=== PATIENT | male | born 1990 | race Caucasian/White ===

== ENCOUNTER 2018-09-07 13:10 | Emergency (ER) | payer SELFPAY ==
[~2018-09-07] VITALS: Ht 172.7 cm; Wt 131.1 kg
[2018-09-07 13:21] VITALS: BP 105/83
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
--- NOTE | 2018-09-07 14:14 | NUR ---
PT TO CT SCAN VIA WHEELCHAIR .
--- NOTE | 2018-09-07 14:15 | NUR ---
PT PLACED ON CARIAC MONITOR
[2018-09-07] MEDS ORDERED: ONDANSETRON 4 MG/2 ML VIAL IVP ONE (14:30)
[2018-09-07] MEDS ORDERED: HYDROcodone/APAP 7.5/325 MG 1 TAB PO ONE (14:30)
[2018-09-07] MEDS ORDERED: NACL 0.9% 1,000 ML IV ONE (14:30)
--- NOTE | 2018-09-07 15:05 | NUR ---
VSS AT THIS TIME. PT [id number]. LIGHTS TURNED OFF FOR PT COMFORT
[2018-09-07 15:17] LABS: BARBITURATE, URINE NEG. ng/ml (NEG <=200); BENZODIAZEPINE, URINE NEG. ng/mL (NEG <=200); CANNABINOID, URINE NEG. ng/mL (NEG <=50); COCAINE, URINE NEG. ng/mL (NEG <=300); OPIATE, URINE NEG. ng/mL (NEG <=2000); PHENCYCLIDINE SCREEN,URINE NEG. ng/mL (NEG <=25)
[2018-09-07 15:52] VITALS: BP 129/56
--- NOTE | 2018-09-07 15:52 | NUR ---
Patient discharged with v/s stable. Written and verbal after care instructions given and explained. Patient alert, oriented and verbalized understanding of instructions. Ambulatory with steady gait. All questions addressed prior to discharge. ID band removed. Patient advised to follow up with PMD. Rx of IBUPROFEN given. Patient educated on indication of medication including possible reaction and side effects. Opportunity to ask questions provided and answered. PT STATES HIS WILL BE PICKING HIM UP.
== END 2018-09-07 15:52 | disposition home or self-care (01) ==
LOC: MED 13:10
DX: S09.90XA Unspecified injury of head, initial encounter (principal); E86.0 Dehydration; F15.10 Other stimulant abuse, uncomplicated; F17.210 Nicotine dependence, cigarettes, uncomplicated; W01.0XXA Fall on same level from slipping, tripping and stumbling without subsequent striking against object, initial encounter; Y93.89 Activity, other specified; Y92.89 Other specified places as the place of occurrence of the external cause; Y99.8 Other external cause status
CPT/HCPCS: 70450; 80305; 81002; 96361; 96374; 99284; J2405; J7030

== ENCOUNTER 2019-09-11 18:45 | Emergency (ER) | payer SELFPAY ==
[~2019-09-11] VITALS: Ht 172.7 cm; Wt 131.5 kg
--- NOTE | 2019-09-11 18:52 | NUR ---
PT AMBULATED TO ER BED 02
[2019-09-11 18:56] VITALS: BP 141/112
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
[2019-09-11] MEDS ORDERED: KETOROLAC 30 MG/ML VIAL IM ONE (19:15)
--- NOTE | 2019-09-11 20:00 | NUR ---
PT RETURNED FROM RAD
--- NOTE | 2019-09-11 20:26 | NUR ---
Dr. Storm examining patient.
[2019-09-11 20:55] VITALS: BP 141/112
--- NOTE | 2019-09-11 20:55 | NUR ---
Patient discharged with v/s stable. Written and verbal after care instructions given and explained. Patient alert, oriented and verbalized understanding of instructions. Ambulatory with steady gait. All questions addressed prior to discharge. ID band removed. Patient advised to follow up with PMD. Rx of NAPROXEN given. PT AAOX4 and walks in steady gait and no dizziness or pain complained. pt d/c.
== END 2019-09-11 20:55 | disposition home or self-care (01) ==
LOC: MED 18:45
DX: S20.212A Contusion of left front wall of thorax, initial encounter (principal); W18.39XA Other fall on same level, initial encounter; Y93.89 Activity, other specified; Y92.89 Other specified places as the place of occurrence of the external cause; Y99.8 Other external cause status
CPT/HCPCS: 71046; 96372; 99283; J1885

== ENCOUNTER 2020-02-13 15:32 | Emergency (ER) | payer MEDICAID ==
[~2020-02-13] VITALS: Ht 172.7 cm; Wt 131.5 kg
[2020-02-13 15:40] VITALS: BP 124/72
[2020-02-13] MEDS ORDERED: ACETAMINOPHEN EXTRA STRENGTH 500 MG TAB PO ONE (16:25)
[2020-02-13] MEDS ORDERED: BACITRACIN OINT 500 UNITS/GM PKT TP ONE (16:25)
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
--- NOTE | 2020-02-13 16:29 | NUR ---
IRRIGATED PT HEAD WITH SALINE WITHOUT ANY ISSUES
--- NOTE | 2020-02-13 16:49 | NUR ---
Patient taken to CT scan via wheelchair by tech.
[2020-02-13 18:02] VITALS: BP 130/84
== END 2020-02-13 18:02 | disposition home or self-care (01) ==
LOC: MED 15:32
DX: S01.01XA Laceration without foreign body of scalp, initial encounter (principal); F17.210 Nicotine dependence, cigarettes, uncomplicated; W20.8XXA Other cause of strike by thrown, projected or falling object, initial encounter; Y93.89 Activity, other specified; Y92.89 Other specified places as the place of occurrence of the external cause; Y99.8 Other external cause status
CPT/HCPCS: 12001; 70450; 99284

== ENCOUNTER 2020-03-30 21:05 | Emergency (ER) | payer MEDICAID, SELFPAY ==
[~2020-03-30] VITALS: Ht 172.7 cm; Wt 119.7 kg
[2020-03-30 21:20] VITALS: BP 152/82
--- NOTE | 2020-03-30 22:00 | NUR ---
ERMD ASSESSING PATIENT IN TENT.
[2020-03-30 22:15] VITALS: BP 152/82
--- NOTE | 2020-03-30 22:15 | NUR ---
JOSSELYN SWAB COLLEDTEC AND SENT TO LAB. NO NURSING INTERVENTIONS NEEDED PATIENT SEEN, TREATED, AND D/C BY ERMAraceli.
== END 2020-03-30 22:15 | disposition home or self-care (01) ==
LOC: MED 21:05
DX: R05 Cough (principal); Z20.828 Contact with and (suspected) exposure to other viral communicable diseases
CPT/HCPCS: 99283; U0003

== ENCOUNTER 2021-05-24 22:52 | Emergency (ER) | payer MEDICAID, SELFPAY ==
[~2021-05-24] VITALS: Ht 172.7 cm; Wt 120.2 kg
[2021-05-24 23:00] VITALS: BP 123/64
--- NOTE | 2021-05-24 23:03 | NUR ---
TO LOBBY A/W BED AMBULATORY
--- NOTE | 2021-05-24 23:25 | NUR ---
SEEN AND EXAMINED BY ЮЛИЯ
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
[2021-05-24 23:50] LABS: APPEARANCE,URINE CLEAR (CLEAR); BILIRUBIN,URINE NEGATIVE (NEGATIVE); BLOOD, URINE NEGATIVE (NEGATIVE); COLOR,URINE YELLOW (YELLOW); LEUKOCYTE ESTERASE ,URINE NEGATIVE (NEGATIVE); NITRITE, URINE NEGATIVE (NEGATIVE); UGLUCOSE NEGATIVE (NEGATIVE)
--- NOTE | 2021-05-25 00:12 | NUR ---
ULTRASOUND AT THE BEDSIDE
--- NOTE | 2021-05-25 00:12 | NUR ---
ULTRASOUND AT BEDSIDE.
--- NOTE | 2021-05-25 01:31 | NUR ---
pt is awake and alert. vss. pt in stable condition. all needs met at this time. bed locked in lowest position, side rails x2 for safety.
[2021-05-25] MEDS ORDERED: LEVO-315 PO (02:20)
[2021-05-25 02:24] VITALS: BP 123/64
--- NOTE | 2021-05-25 02:25 | NUR ---
Patient discharged with v/s stable. Written and verbal after care instructions given and explained about epididymitis. Patient alert, oriented and verbalized understanding of instructions. Ambulatory with steady gait. All questions addressed prior to discharge. ID band removed. Patient advised to follow up with PMD. Rx of levoflaxacin given. Patient educated on indication of medication including possible reaction and side effects. Opportunity to ask questions provided and answered.
== END 2021-05-25 02:25 | disposition home or self-care (01) ==
LOC: MED 22:52
DX: N45.1 Epididymitis (principal); L98.9 Disorder of the skin and subcutaneous tissue, unspecified; F17.210 Nicotine dependence, cigarettes, uncomplicated; F15.10 Other stimulant abuse, uncomplicated
CPT/HCPCS: 76870; 81003; 99284; Q0092

== ENCOUNTER 2021-06-10 18:39 | Emergency (ER) | payer SELFPAY ==
[~2021-06-10] VITALS: Ht 172.7 cm; Wt 124.7 kg
[~2021-06-10 18:39] MED LIST: LEVO-315 PO
[2021-06-10 18:46] VITALS: BP 115/90
[2021-06-10] MEDS ORDERED: KETOROLAC 30 MG/ML VIAL IM ONE (19:00)
[2021-06-10] MEDS ORDERED: CEPH-588 PO (19:02)
[2021-06-10] MEDS ORDERED: NAPR-54 PO (19:02)
[2021-06-10 19:23] VITALS: BP 115/90
== END 2021-06-10 19:24 | disposition home or self-care (01) ==
LOC: MED 18:39
DX: L03.113 Cellulitis of right upper limb (principal); Z79.899 Other long term (current) drug therapy
CPT/HCPCS: 96372; 99283; J1885

== ENCOUNTER 2021-06-12 19:32 | Emergency (ER) | payer SELFPAY ==
[~2021-06-12] VITALS: Ht 172.7 cm; Wt 123.8 kg
[~2021-06-12 19:32] MED LIST changes: +CEPH-588 PO; +NAPR-54 PO
--- NOTE | 2021-06-12 19:51 | NUR ---
PT AMBULATED TO BED 04.
[2021-06-12 20:00] VITALS: BP 161/72
[2021-06-12] MEDS ORDERED: NACL 0.9% 1,000 ML IV ONE (20:15)
[2021-06-12] MEDS ORDERED: KETOROLAC 30 MG/ML VIAL IVP ONE (20:15)
--- NOTE | 2021-06-12 20:27 | NUR ---
Pt resting in bed without acute distress. Plan of care reviewed. Pt and spouse receptive to info. Per MD order, NS 1L infusion started and administered toledol 30mg IVP without event. Provided comfort needs.
[2021-06-12] MEDS ORDERED: MORPHINE SULFATE 4 MG/ML SYR IVP ONE (22:05)
[2021-06-12] MEDS ORDERED: IBUP-2213 PO (22:31)
[2021-06-12] MEDS ORDERED: ACET-8386 PO (22:31)
[2021-06-12 22:35] VITALS: BP 107/51
--- NOTE | 2021-06-12 22:35 | NUR ---
Patient discharged with v/s stable. Written and verbal after care instructions given and explained. Patient alert, oriented and verbalized understanding of instructions. Ambulatory with steady gait. All questions addressed prior to discharge. ID band removed. Patient advised to follow up with PMD. Rx of ibuprofen and norco 5-325 given. Patient educated on indication of medication including possible reaction and side effects. Opportunity to ask questions provided and answered.
== END 2021-06-12 22:35 | disposition home or self-care (01) ==
LOC: MED 19:32
DX: L03.113 Cellulitis of right upper limb (principal); R21 Rash and other nonspecific skin eruption; B37.2 Candidiasis of skin and nail; Z79.1 Long term (current) use of non-steroidal anti-inflammatories (NSAID); Z79.2 Long term (current) use of antibiotics
CPT/HCPCS: 96361; 96374; 99283; J1885; J7030

== ENCOUNTER 2022-03-10 00:16 | Emergency (ER) | payer MEDICAID ==
[~2022-03-10] VITALS: Ht 172.7 cm; Wt 113.4 kg
[~2022-03-10 00:16] MED LIST changes: +ACET-8905 PO; +IBUP-2213 PO; -LEVO-315 PO; +LEVO-481 PO
[2022-03-10 00:17] VITALS: BP 128/73
--- NOTE | 2022-03-10 00:21 | NUR ---
PT LC BLS. TAKEN TO BED 8
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
--- NOTE | 2022-03-10 00:45 | NUR ---
PT FADY LEFT PHONE #
--- NOTE | 2022-03-10 01:49 | NUR ---
Dr. Bennett examining patient.
--- NOTE | 2022-03-10 01:51 | NUR ---
Patient being evaluated by physician at bedside.
[2022-03-10] MEDS ORDERED: MORPHINE SULFATE 4 MG/ML SYR IM ONE (01:55)
[2022-03-10] MEDS ORDERED: MORPHINE SULFATE 4 MG/ML SYR ONE (01:57)
[2022-03-10 02:00] VITALS: BP 118/73
--- NOTE | 2022-03-10 02:01 | NUR ---
PATIENT MEDICATED PER ORDERS. TOLERATED WELL. NADR
--- NOTE | 2022-03-10 03:01 | NUR ---
ATIENT RESTING WITH EYES CLOSED. RR APPEAR UNLABORED. DOESNT APPEAR TO BE IN DISTRESS. BED LOW AND LOCKED. MAICO SIDE RAILS UP FOR SAFETY. CALL LIGHT IN REACH. ALL NEEDS MET.
--- NOTE | 2022-03-10 04:01 | NUR ---
PATIENT RQ URINAL.
--- NOTE | 2022-03-10 04:28 | NUR ---
PATIENT RQ WATER
--- NOTE | 2022-03-10 05:08 | NUR ---
CALLED NOMAN - [phone] AND UPDATED ON PATIENTS STATUS. STATED THAT SHE WILL BE PICKING UP PATIENT IN THE NEXT 30 MINUTES.
--- NOTE | 2022-03-10 05:12 | NUR ---
PATIENT RQ WATER
[2022-03-10] MEDS ORDERED: NAPR-54 PO (05:30)
--- NOTE | 2022-03-10 05:35 | NUR ---
Written and verbal after care instructions given and explained. Patient alert, oriented and verbalized understanding of instructions. Ambulatory with steady gait. All questions addressed prior to discharge. ID band removed. Patient advised to follow up with PMD. Rx of NAPROXEN given. Patient educated on indication of medication including possible reaction and side effects. Opportunity to ask questions provided and answered.
== END 2022-03-10 05:35 | disposition home or self-care (01) ==
LOC: MED 00:16
DX: S81.832A Puncture wound without foreign body, left lower leg, initial encounter (principal); Z79.899 Other long term (current) drug therapy; W34.09XA Accidental discharge from other specified firearms, initial encounter; Y93.89 Activity, other specified; Y92.89 Other specified places as the place of occurrence of the external cause; Y99.8 Other external cause status
CPT/HCPCS: 96372; 99283; J2270

== ENCOUNTER 2023-01-22 02:30 | Emergency (ER) | payer BC ==
[~2023-01-22] VITALS: Ht 172.7 cm; Wt 111.1 kg
[2023-01-22 02:30] VITALS: BP 148/90; PULSE 110; RESP 18; TEMP 97.8; O2SAT 99
[2023-01-22] MEDS ORDERED: KETOROLAC 60 MG/2 ML VIAL IM ONE (02:40)
[2023-01-22] MEDS ORDERED: NAPR-54 PO (04:15)
== END 2023-01-22 04:20 | disposition home or self-care (01) ==
LOC: MED 02:30
DX: S42.191A Fracture of other part of scapula, right shoulder, initial encounter for closed fracture (principal); S83.92XA Sprain of unspecified site of left knee, initial encounter; Z79.899 Other long term (current) drug therapy; Z79.1 Long term (current) use of non-steroidal anti-inflammatories (NSAID); Z79.2 Long term (current) use of antibiotics; V29.99XA Rider (driver) (passenger) of other motorcycle injured in unspecified traffic accident, initial encounter; Y93.89 Activity, other specified; Y92.410 Unspecified street and highway as the place of occurrence of the external cause; Y99.8 Other external cause status
CPT/HCPCS: 71101; 73560; 96372; 99284; J1885